=== PATIENT | female | born 1980 | race Caucasian/White ===

== ENCOUNTER 2019-12-23 06:34 | Day surgery (SDC) | payer MEDICAID ==
[~2019-12-23] VITALS: Ht 170.2 cm; Wt 85.0 kg
[~2019-12-23 06:34] MED LIST: ALBU8HFA IH; CEPH-582 PO; CEPH250S35 PO; CITA-144 PO; FLUT16H NASAL; FLUT1BLS10 PO; LOSA50TA37 PO; MONT10TA21 PO; NORG1TAB12 PO; OMEP20 PO; PRED10 PO; PROP40TA7 PO; SODIUM CHLORIDE 0.9% 1,000 ML IV ONE; SODIUM CHLORIDE 0.9% 1,000 ML ONE
[2019-12-23] MEDS ORDERED: MIDAZOLAM HCL 2 MG/2 ML VIAL ONE (07:45)
[2019-12-23] MEDS ORDERED: FentaNYL CITRATE-PF 100 MCG/2 ML VIAL ONE (07:45)
[2019-12-23] MEDS ORDERED: MethylPREDNISolone SOD SUCC 125 MG/2 ML VIAL IVP ONE (09:00)
[2019-12-23] MEDS ORDERED: LIDOCAINE 4% 50 ML SOLUTION ONE (14:47)
[2019-12-23] MEDS ORDERED: ALBUTEROL SULFATE 2.5 MG/0.5 ML NEB SOLUTION NEB ONE (14:47)
[2019-12-23] MEDS ORDERED: BENZOCAINE 20% 50 MCG/SPRAY 57 GM ONE (14:47)
[2019-12-23] MEDS ORDERED: OXYGEN THERAPY IH SCH (20:00)
== END 2019-12-23 10:15 | disposition home or self-care (01) ==
LOC: SURGERY 06:34 → EDSEX 09:30 → SURGERY 10:15
PROVIDERS: ATTEND Internal Medicine Critical Care Medicine
DX: J38.4 Edema of larynx (principal); B37.0 Candidal stomatitis
CPT/HCPCS: 31623; 31624; 71045; 84703; 87015; 87070; 87101; 87205; 87206; 87220; 87635; 88108; 88312; J2250; J2930; J3010; J7030; J7613; Z7610

== ENCOUNTER → 2021-02-15 | Day surgery (SDC) | payer MEDICAID ==
[2021-02-12 10:40] LABS: COVID AG,FIA SOURCE NASOPHARYNGEAL
[~2021-02-15] MED LIST changes: -ALBU8HFA IH; +BACL20TA PO; -CEPH-582 PO; -CEPH250S35 PO; -CITA-144 PO; +CITA40TA6 PO; +GABA-1181 PO; +MONT-35 PO; -MONT10TA21 PO; -NORG1TAB12 PO; -PRED10 PO; -PROP40TA7 PO; -SODIUM CHLORIDE 0.9% 1,000 ML ONE
== END | disposition home or self-care (01) ==
LOC: SURGERY 05:00
PROVIDERS: ATTEND Internal Medicine Critical Care Medicine
DX: R05.9 Cough, unspecified (principal); Z53.8 Procedure and treatment not carried out for other reasons; R91.1 Solitary pulmonary nodule; J98.09 Other diseases of bronchus, not elsewhere classified
CPT/HCPCS: 84703; 87426; C9803